=== PATIENT | female | born 1995 | race Two or more races ===

== ENCOUNTER 2018-10-22 08:22 | Emergency (ER) | payer OTHER, SELFPAY ==
[~2018-10-22] VITALS: Ht 160 cm; Wt 45.4 kg
[2018-10-22 08:31] VITALS: BP 112/72
[2018-10-22 09:19] LABS: BASOPHILS # (AUTO) 0.02 x10^3/uL (0-0.1); BASOPHILS % (AUTO) 0 % (0-1); EOSINOPHILS # (AUTO) 0.01 x10^3/uL (0-0.4); EOSINOPHILS % (AUTO) 0 % (1-7); LYMPHOCYTES # (AUTO) 1.14 x10^3/uL (1-3.4); LYMPHOCYTES % (AUTO) 17 % (22-44); MD NO; MEAN CORPUSCULAR HEMOGLOBIN 27.7 pg (27.0-34.8); MEAN CORPUSCULAR HGB CONC 32.6 g/dL (32.4-35.8); MEAN PLATELET VOLUME 8.8 fL (7.4-10.4); MONOCYTES # (AUTO) 0.33 x10^3/uL (0.2-0.8); MONOCYTES % (AUTO) 5 % (2-9); NEUTROPHILS # (AUTO) 5.33 x10^3/uL (1.8-6.8); NEUTROPHILS % (AUTO) 78 % (42-75); PLATELET COUNT 327 x10^3/uL (130-400); RED BLOOD COUNT 4.91 x10^6/uL (3.82-5.3); RED CELL DISTRIBUTION WIDTH 12.4 % (9.6-15.2)
[2018-10-22 09:31] LABS: ANION GAP 6 mmol/L (5-15); CHLORIDE 107 mmol/L (98-107)
[2018-10-22 09:36] LABS: ALANINE AMINOTRANSFERASE 17 U/L (12-78); ALKALINE PHOSPHATASE 47 U/L (45-117); BILIRUBIN,TOTAL 0.8 mg/dL (0.2-1.0); CREATININE 0.75 mg/dL (0.55-1.02); TOTAL PROTEIN 7.5 g/dL (6.4-8.2)
--- NOTE | 2018-10-22 09:45 | NUR ---
PT MOVED TO ROOM FROM LOBBY. AMBULATORY WITHOUT ASSISTANCE
--- NOTE | 2018-10-22 09:57 | NUR ---
Clean catch urine sample provided by pt. Specimen collected, labeled at bedside, sent to lab.
[2018-10-22 10:15] LABS: MICROSCOPIC AUTO
[2018-10-22 10:16] LABS: CULTURE INDICATED? YES
--- NOTE | 2018-10-22 10:22 | NUR ---
MD EVALUATING PT
== END 2018-10-22 10:35 | disposition home or self-care (01) ==
LOC: ED 10:32
DX: R10.32 Left lower quadrant pain (principal)
CPT/HCPCS: 36415; 74021; 80053; 81001; 83690; 84703; 85025; 87086; 99284

== ENCOUNTER 2019-07-21 01:11 | Inpatient (IN) | payer OTHER ==
[~2019-07-21] VITALS: Ht 160 cm; Wt 55.2 kg
[2019-07-21 01:15] VITALS: BP 121/80
[2019-07-21] MEDS ORDERED: NEWBORN KIT ONE (02:00)
[2019-07-21] MEDS ORDERED: OXYTOCIN 30U/ 0.9% NaCL 500ML 500 ML IV ONE (02:37)
[2019-07-21] MEDS ORDERED: D5%-LACTATED RINGERS 1,000 ML IV SCH (02:37)
[2019-07-21] MEDS ORDERED: ONDANSETRON 2MG/ML, 2ML ONE (02:41)
[2019-07-21] MEDS ORDERED: FENTANYL PF 100 MCG/2ML ONE ×2 (02:41→05:58)
[2019-07-21] MEDS ORDERED: FENTANYL/BUPIV./NS/PF 250 ML EPIDCONT SCH ×2 (02:48→10:55)
[2019-07-21] MEDS: FENTANYL PF 100 MCG/2ML IVPush PRN ×2 (02:49→06:07)
[2019-07-21 03:00] LABS: BASOPHILS # (AUTO) 0.04 x10^3/uL (0-0.1); BASOPHILS % (AUTO) 1 % (0-1); EOSINOPHILS % (AUTO) 0 % (1-7); LYMPHOCYTES # (AUTO) 1.42 x10^3/uL (1-3.4); LYMPHOCYTES % (AUTO) 18 % (22-44); MD NO; MEAN CORPUSCULAR HEMOGLOBIN 24.6 pg (27.0-34.8); MEAN CORPUSCULAR HGB CONC 31.9 g/dL (32.4-35.8); MEAN CORPUSCULAR VOLUME 77.3 fL (80-100); MEAN PLATELET VOLUME 9.6 fL (7.4-10.4); MONOCYTES # (AUTO) 0.43 x10^3/uL (0.2-0.8); MONOCYTES % (AUTO) 5 % (2-9); NEUTROPHILS # (AUTO) 6.14 x10^3/uL (1.8-6.8); NEUTROPHILS % (AUTO) 76 % (42-75); PLATELET COUNT 225 x10^3/uL (130-400); RED BLOOD COUNT 4.03 x10^6/uL (3.82-5.3); RED CELL DISTRIBUTION WIDTH 14.6 % (9.6-15.2)
[2019-07-21] MEDS ORDERED: FENTANYL PF 500 MCG, BUPIVACAINE/PF 0.5%, 30ML 62.5 ML in SODIUM CHLORIDE 0.9% 177.5 ML EPIDCONT SCH ×3 (03:00→11:02)
[2019-07-21] MEDS ORDERED: TERBUTALINE 1 MG/ML, 1ML SQ PRN (03:00)
[2019-07-21] MEDS ORDERED: TERBUTALINE 1 MG/ML, 1ML IVPush PRN (03:00)
[2019-07-21] MEDS ORDERED: ONDANSETRON 2MG/ML, 2ML IVPush PRN ×2 (03:00→11:00)
[2019-07-21] MEDS ORDERED: FENTANYL PF 100 MCG/2ML IV PRN (03:00)
[2019-07-21] MEDS ORDERED: LIDOCAINE 1%, 20ML ONE (07:10)
[2019-07-21] MEDS ORDERED: MISOPROSTOL 200 MCG TABLET ONE (07:11)
[2019-07-21] MEDS ORDERED: OXYTOCIN 30U/ 0.9% NaCL 500ML 500 ML ONE (07:12)
[2019-07-21] MEDS: LACTATED RINGERS 1,000 ML IV SCH ×2 (09:00→10:19)
[2019-07-21] MEDS ORDERED: OXYTOCIN 30U/ 0.9% NaCL 500ML 500 ML IV PRN (09:37)
[2019-07-21] MEDS ORDERED: BUPIVACAINE 0.25% ONE ×2 (10:17→10:23)
[2019-07-21] MEDS ORDERED: FENTANYL/BUPIV./NS/PF 250 ML EPIDCONT ONE (10:23)
[2019-07-21] MEDS ORDERED: LIDOCAINE/PF 1.5%-EPI 1:200K, 30ML ONE (10:23)
[2019-07-21] MEDS ORDERED: LACTATED RINGERS 1,000 ML IV SCH (10:55)
[2019-07-21] MEDS ORDERED: NALOXONE 0.4 MG/ML, 1ML IVPush PRN (11:00)
[2019-07-21] MEDS ORDERED: EPHEDRINE 50 MG/ML, 1ML IVPush PRN (11:00)
[2019-07-21] MEDS ORDERED: LACTATED RINGERS 1,000 ML IVBOLUS PRN (11:00)
[2019-07-21] MEDS ORDERED: DIPHENHYDRAMINE 50 MG/ML, 1ML IVPush PRN (11:00)
[2019-07-21] MEDS: OXYTOCIN 30U/ 0.9% NaCL 500ML 500 ML IV SCH (18:21)
[2019-07-21] MEDS ORDERED: ONDANSETRON 2MG/ML, 2ML IV PRN (18:30)
[2019-07-21] MEDS ORDERED: SIMETHICONE 80 MG CHEW TAB PO PRN (18:30)
[2019-07-21] MEDS ORDERED: CALCIUM CARBONATE 500 MG TAB.CHEW PO PRN (18:30)
[2019-07-21] MEDS ORDERED: ACETAMINOPHEN 325 MG TABLET PO PRN (18:30)
[2019-07-21] MEDS ORDERED: OXYcodone IR 5MG TABLET PO PRN (18:30)
[2019-07-21] MEDS ORDERED: OXYcodone/APAP 5/325MG TABLET PO PRN (18:30)
[2019-07-21] MEDS ORDERED: MISOPROSTOL 200 MCG TABLET PR PRN (18:30)
[2019-07-21] MEDS ORDERED: IBUPROFEN 600 MG TABLET ONE (18:35)
[2019-07-21] MEDS: IBUPROFEN 600 MG TABLET PO PRN (18:36)
[2019-07-21 20:55] VITALS: BP 109/70
[2019-07-22 01:12] VITALS: BP 105/70
[2019-07-22] MEDS: IBUPROFEN 600 MG TABLET PO PRN ×4 (01:27→22:06)
[2019-07-22 02:11] LABS: BASOPHILS # (AUTO) 0.01 x10^3/uL (0-0.1); BASOPHILS % (AUTO) 0 % (0-1); EOSINOPHILS # (AUTO) 0.17 x10^3/uL (0-0.4); EOSINOPHILS % (AUTO) 1 % (1-7); LYMPHOCYTES # (AUTO) 1.03 x10^3/uL (1-3.4); LYMPHOCYTES % (AUTO) 8 % (22-44); MD NO; MEAN CORPUSCULAR HEMOGLOBIN 25.5 pg (27.0-34.8); MEAN CORPUSCULAR HGB CONC 32.4 g/dL (32.4-35.8); MEAN CORPUSCULAR VOLUME 78.7 fL (80-100); MEAN PLATELET VOLUME 9.4 fL (7.4-10.4); MONOCYTES # (AUTO) 0.88 x10^3/uL (0.2-0.8); MONOCYTES % (AUTO) 7 % (2-9); NEUTROPHILS # (AUTO) 11.04 x10^3/uL (1.8-6.8); NEUTROPHILS % (AUTO) 84 % (42-75); PLATELET COUNT 196 x10^3/uL (130-400); RED BLOOD COUNT 3.04 x10^6/uL (3.82-5.3); RED CELL DISTRIBUTION WIDTH 14.5 % (9.6-15.2)
[2019-07-22] MEDS: OXYTOCIN 30U/ 0.9% NaCL 500ML 500 ML IV SCH ×2 (04:21→14:21)
[2019-07-22 05:00] VITALS: BP 103/68
[2019-07-22] MEDS: FERROUS SULFATE 325 MG TABLET PO SCH ×2 (07:23→16:07)
[2019-07-22] MEDS: DOCUSATE 100 MG CAPSULE PO PRN ×2 (07:23→20:49)
[2019-07-22] MEDS: PRENATAL VIT/IRON/FA 1 EACH TABLET PO SCH (07:23)
[2019-07-22 08:03] VITALS: BP 94/60
[2019-07-22 12:03] VITALS: BP 102/68
[2019-07-22 16:30] VITALS: BP 110/76
[2019-07-22 21:30] VITALS: BP 121/77
[2019-07-23 00:10] VITALS: BP 100/65
[2019-07-23] MEDS: OXYTOCIN 30U/ 0.9% NaCL 500ML 500 ML IV SCH ×2 (00:21→10:21)
[2019-07-23 05:15] VITALS: BP 117/78
[2019-07-23] MEDS: IBUPROFEN 600 MG TABLET PO PRN ×3 (05:28→17:41)
[2019-07-23 07:05] VITALS: BP 105/71
[2019-07-23] MEDS: FERROUS SULFATE 325 MG TABLET PO SCH ×2 (09:12→17:41)
[2019-07-23] MEDS: PRENATAL VIT/IRON/FA 1 EACH TABLET PO SCH (09:12)
[2019-07-23] MEDS: DOCUSATE 100 MG CAPSULE PO PRN (09:12)
[2019-07-23] MEDS ORDERED: DOCU-131 PO (17:55)
[2019-07-23] MEDS ORDERED: FERR325T23 PO (17:55)
[2019-07-23] MEDS ORDERED: IBUP-1222 PO (17:56)
== END 2019-07-23 18:44 | disposition home or self-care (01) | DRG 807 ==
LOC: LDOP 01:11 → LDIP 02:15 → 2NW 20:22
PROVIDERS: ADMIT Obstetrics & Gynecology; ATTEND Obstetrics & Gynecology
PROC: 10E0XZZ Delivery of Products of Conception, External Approach (ICD-10-PCS; principal; 2019-07-21)
PROC: 0KQM0ZZ Repair Perineum Muscle, Open Approach (ICD-10-PCS; 2019-07-21)
PROC: 3E0R3BZ Introduction of Anesthetic Agent into Spinal Canal, Percutaneous Approach (ICD-10-PCS; 2019-07-21)
PROC: 00HU33Z Insertion of Infusion Device into Spinal Canal, Percutaneous Approach (ICD-10-PCS; 2019-07-21)
PROC: 10907ZC Drainage of Amniotic Fluid, Therapeutic from Products of Conception, Via Natural or Artificial Opening (ICD-10-PCS; 2019-07-21)
DX: O75.81 Maternal exhaustion complicating labor and delivery (principal); Z37.0 Single live birth; O70.1 Second degree perineal laceration during delivery; O90.81 Anemia of the puerperium; D50.9 Iron deficiency anemia, unspecified; Z87.442 Personal history of urinary calculi
CPT/HCPCS: 36415; J3490; J7121; S0020; 85025; 86850; 86900; G0378; J2405; J3010; J2590; J7050; J7120